=== PATIENT | female | born 1985 | race Caucasian/White ===

== ENCOUNTER 2017-02-01 00:04 | Inpatient (IN) | payer OTHER ==
[~2017-02-01] VITALS: Ht 160 cm; Wt 70.8 kg
[~2017-02-01 00:04] MED LIST: FERR-89 PO; IBUP-2070 PO; LEVO300T8 PO; PREN1TAB80 PO
[2017-02-01] MEDS ORDERED: RINGERS SOLUTION,LACTATED 1,000 ML IV SCH (01:13)
[2017-02-01] MEDS ORDERED: RINGERS SOLUTION,LACTATED 1,000 ML IV PRN (01:13)
[2017-02-01] MEDS ORDERED: OXYTOCIN 30 UNITS/LACT RINGERS 500 ML IV ONE (01:13)
[2017-02-01] MEDS ORDERED: METOCLOPRAMIDE HCL 5 MG/ML 2 ML VIAL IVP PRN (01:15)
[2017-02-01] MEDS ORDERED: CITRIC ACID/SODIUM CITRATE 30 ML SOLUTION UDCUP PO PRN (01:15)
[2017-02-01 01:37] LABS: BASOPHILS # (AUTO) 0.05 K/uL (0.00-0.20); BASOPHILS % (AUTO) 0.6 % (0.0-2.0); EOSINOPHILS # (AUTO) 0.02 K/uL (0.00-0.70); EOSINOPHILS % (AUTO) 0.23 % (1.0-6.0); HEMATOCRIT 33.8 % (36-46); HEMOGLOBIN 11.2 g/dL (12.0-16.0); LYMPHOCYTES # (AUTO) 2.5 K/uL (1.0-4.8); MEAN CORPUSCULAR HEMOGLOBIN 31.5 pg (26.0-34.0); MEAN CORPUSCULAR HGB CONC 33.2 G/dL (31.0-37.0); MEAN CORPUSCULAR VOLUME 95 fL (80-100); MONOCYTES # (AUTO) 0.3 K/uL (0.1-1.0); MONOCYTES % (AUTO) 3.3 % (2.0-9.0); NEUTROPHILS # (AUTO) 6.3 K/uL (1.8-7.7); NEUTROPHILS % (AUTO) 68.9 % (40.0-70.0); RED BLOOD CELL COUNT(AUTO) 3.56 MIL/uL (4.00-5.20); RED CELL DISTRIBUTION WIDTH 14.1 % (11.5-14.5); WHITE BLOOD COUNT (AUTO) 9.2 K/uL (4.5-11.0)
[2017-02-01 01:47] LABS: GLUCOSE,POINT OF CARE 91 MG/DL (70-110)
[2017-02-01] MEDS ORDERED: AMPICILLIN SODIUM 2 GM/NS 100 ML IV ONE (02:00)
[2017-02-01] MEDS ORDERED: FentaNYL/BUPIV 0.125%/NS/PF 200 ML ED ONE (02:13)
[2017-02-01] MEDS ORDERED: LIDOCAINE HCL/PF 1% 30 ML VIAL ONE (02:58)
[2017-02-01] MEDS: FentaNYL CITRATE-PF 100 MCG/2 ML VIAL IVP PRN ×2 (03:51→03:52)
[2017-02-01 03:54] VITALS: BP 106/60
[2017-02-01] MEDS ORDERED: BENZOCAINE 20%/MENTHOL 56 GM SPRAY CANISTER TP PRN (04:15)
[2017-02-01] MEDS ORDERED: LANOLIN 7 GM OINTMENT TP PRN (04:15)
[2017-02-01] MEDS ORDERED: GLYCERIN/WITCH HAZEL LEAF 40 PADS JAR TP PRN (04:15)
[2017-02-01] MEDS ORDERED: ACETAMINOPHEN/CODEINE 300-30 MG TABLET PO PRN ×2 (04:15)
[2017-02-01] MEDS: IBUPROFEN 600 MG TABLET PO PRN ×3 (05:43→20:17)
[2017-02-01] MEDS ORDERED: AMPICILLIN SODIUM 1 GM/NS 50 ML IV SCH (06:00)
[2017-02-01] MEDS: LEVOTHYROXINE SODIUM 150 MCG TABLET PO SCH (06:34)
[2017-02-01] MEDS ORDERED: MAGNESIUM HYDROXIDE SUSPENSION 30 ML UDCUP PO SCH (09:00)
[2017-02-01] MEDS ORDERED: SENNA/DOCUSATE SODIUM 187-50 MG TABLET PO SCH (09:00)
[2017-02-02] MEDS: LEVOTHYROXINE SODIUM 150 MCG TABLET PO SCH (06:33)
[2017-02-02] MEDS ORDERED: FERR-89 PO (08:42)
[2017-02-02] MEDS ORDERED: DSS100 PO (08:42)
[2017-02-02] MEDS ORDERED: IBUP-2070 PO (08:48)
== END 2017-02-02 10:20 | disposition home or self-care (01) | DRG 774 ==
LOC: OBSVTOIN 00:04 → 4S 00:04
PROVIDERS: ADMIT Obstetrics & Gynecology; ATTEND Obstetrics & Gynecology
PROC: 10E0XZZ Delivery of Products of Conception, External Approach (ICD-10-PCS; principal; 2017-02-01)
PROC: 0UQMXZZ Repair Vulva, External Approach (ICD-10-PCS; 2017-02-01)
PROC: 0HQ9XZZ Repair Perineum Skin, External Approach (ICD-10-PCS; 2017-02-01)
PROC: 00HU33Z Insertion of Infusion Device into Spinal Canal, Percutaneous Approach (ICD-10-PCS; 2017-02-01)
PROC: 3E0R3CZ (ICD-10-PCS; 2017-02-01)
DX: O24.32 Unspecified pre-existing diabetes mellitus in childbirth (principal); E03.9 Hypothyroidism, unspecified; E11.9 Type 2 diabetes mellitus without complications; O99.284 Endocrine, nutritional and metabolic diseases complicating childbirth; O70.0 First degree perineal laceration during delivery; O71.82 Other specified trauma to perineum and vulva; Z3A.39 39 weeks gestation of pregnancy; Z37.0 Single live birth; Z79.899 Other long term (current) drug therapy
CPT/HCPCS: 82962; J0290; J2590; J3010; J3490; J7120